=== PATIENT | male | born 2000 | race Caucasian/White ===

== ENCOUNTER 2024-06-20 18:07 | Emergency (ER) | payer BC, OTHER ==
[~2024-06-20] VITALS: Ht 180.3 cm; Wt 117.4 kg
[2024-06-20 18:32] VITALS: TEMP 103
[2024-06-20 19:32] LABS: BASOPHILS % (AUTO) 0.2 % (0-1); EOSINOPHILS % (AUTO) 0.2 % (0-6); HEMOGLOBIN 15.3 g/dl (14.0-17.9); LYMPHOCYTES # (AUTO) 0.5 X10'3 (1.1-4.8); LYMPHOCYTES % (AUTO) 7.1 % (21-51); MEAN CORPUSCULAR HEMOGLOBIN 29.5 PG (27.0-31.0); MEAN CORPUSCULAR HGB CONC 33.9 g/dL (33.0-36.5); MEAN CORPUSCULAR VOLUME 87.1 FL (78-98); MEAN PLATELET VOLUME 7.4 FL (7.4-10.4); MONOCYTES # (AUTO) 1.3 X10'3 (0-0.9); MONOCYTES % (AUTO) 19.6 % (2-12); NEUTROPHILS # (AUTO) 4.9 X10'3 (1.8-7.7); NEUTROPHILS % (AUTO) 72.9 % (42-75); PLATELET COUNT 288 X10'3 (140-440); RED BLOOD COUNT 5.17 X10'6 (4.70-6.10); RED CELL DISTRIBUTION WIDTH 13.5 % (11.5-14.5); WHITE BLOOD COUNT 6.7 X10'3 (4.5-11.0)
[2024-06-20 19:55] LABS: ALBUMIN 4.4 G/DL (3.4-5.0); ANION GAP 9 (8-16); BLOOD UREA NITROGEN 11 MG/DL (7-18); CALCIUM 9.2 MG/DL (8.5-10.1); CHLORIDE 101 MMOL/L (99-107); GLUCOSE 91 MG/DL (70-104); POTASSIUM 3.7 MMOL/L (3.5-5.1); PRO BRAIN NATRIURETIC PEPTIDE 115 PG/ML (0-125); SODIUM 137 MMOL/L (135-145); TOTAL CARBON DIOXIDE 26.9 MMOL/L (24-32); eCRCL 122 ML/MIN; eGFR > 90 ML/MIN
[2024-06-20 20:10] LABS: NUCLEATED RED BLOOD CELLS 1 /100WBC (0-0); TOTAL CELLS COUNTED 100
[2024-06-20] MEDS: ibuprofen 200mg tablet PO ONE (20:13)
[2024-06-20 20:24] VITALS: BP 127/64
[2024-06-20] MEDS: ipratropium/albuterol 3ml nebule NEB ONE (20:42)
[2024-06-20] MEDS: budesonide 0.5mg/2ml UD nebule IH ONE (20:42)
[2024-06-20 20:43] VITALS: PULSE 111; RESP 18; O2SAT 94
[2024-06-20 20:52] VITALS: PULSE 127; RESP 20; O2SAT 100
[2024-06-20] MEDS: acetaminophen 325mg tablet PO ONE (21:09)
[2024-06-20] MEDS ORDERED: SALM50DI2 INH (21:31)
[2024-06-20] MEDS ORDERED: KETO15CR2 TOP (21:31)
== END 2024-06-20 21:56 | disposition home or self-care (01) ==
LOC: ER 18:10
DX: J10.1 Influenza due to other identified influenza virus with other respiratory manifestations (principal); J45.909 Unspecified asthma, uncomplicated; Z20.822 Contact with and (suspected) exposure to COVID-19; Z88.0 Allergy status to penicillin
CPT/HCPCS: 36415; 71046; 80048; 83605; 83880; 85007; 85025; 87040; 87502; 87503; 87811; 93005; 94640; 94760; 99285

== ENCOUNTER 2024-06-24 16:26 | Emergency (ER) | payer OTHER ==
[~2024-06-24] VITALS: Ht 180.3 cm; Wt 117.7 kg
[~2024-06-24 16:26] MED LIST: KETO15CR2 TOP; SALM50DI2 INH
[2024-06-24 17:09] VITALS: BP 144/72; PULSE 95; RESP 18; O2SAT 97
[2024-06-24 18:06] VITALS: TEMP 98.3
== END 2024-06-24 18:08 | disposition home or self-care (01) ==
LOC: ER 16:27
DX: J11.1 Influenza due to unidentified influenza virus with other respiratory manifestations (principal); Z88.0 Allergy status to penicillin
CPT/HCPCS: 71045; 99283